=== PATIENT | female | born 1995 | race Caucasian/White ===

== ENCOUNTER 2020-08-24 13:40 | Emergency (ER) | payer OTHER ==
[~2020-08-24] VITALS: Ht 157.5 cm; Wt 64.4 kg
[2020-08-24 14:06] VITALS: BP_SYST 121
== END 2020-08-24 16:19 | disposition left against medical advice (07) ==
LOC: SED 13:40
DX: R51.9 Headache, unspecified (principal); Z53.21 Procedure and treatment not carried out due to patient leaving prior to being seen by health care provider